=== PATIENT | female | born 1980 | race American Indian/Alaskan Native ===

== ENCOUNTER 2017-04-19 08:41 | Outpatient (CLI) | payer BC ==
--- NOTE | 2017-04-19 13:33 | Ultrasound Report ---
TRANSABDOMINAL AND TRANSVAGINAL PELVIC ULTRASOUND: 04/19/17 08:41:00 CLINICAL: Pelvic pain. FINDINGS: Transabdominal and transvaginal pelvic ultrasound demonstrated an enlarged uterus measuring 12.8 x 5.6 x 6.5 cm. Heterogeneous myometrium suggestive of small fibroids but no measurable uterine fibroids.The endometrium is normal and measures 7.0 mm AP thickness. Normal ovaries. The right ovary measures 3.0 x 1.7 x 3.1cm. The left ovary measures 3.1 x 1.3 x 2.5cm. No adnexal mass. No free fluid. Normal urinary bladder. IMPRESSION: Mild uterine enlargement and an echopattern suggestive of tiny uterine fibroids. Normal ovaries.
== END 2017-04-19 08:42 | disposition home or self-care (01) ==
LOC: SPVWC 08:41
PROVIDERS: ATTEND Internal Medicine
DX: N85.2 Hypertrophy of uterus (principal); R10.2 Pelvic and perineal pain
CPT/HCPCS: 76830; 76856